=== PATIENT | female | born 1990 | race Caucasian/White ===

== ENCOUNTER → 2017-01-22 | Emergency (ER) | payer MEDICAID ==
[~2017-01-22] VITALS: Ht 152.4 cm; Wt 70.8 kg
[~2017-01-22] MED LIST: CELEXA20 MG PO; DICLEGIS1 TCP PO; FIORICET 325 MG1 TAB PO; FUROSEMIDE 20MG20 MG PO; HYDROCODONE-APA1 TA1 PO; IBU600 MG PO; IBUPROFEN800 MG PO; KEFLEX 500MG.500 MG PO; LORTAB 5/500 501 TAB PO; PRENATAL PLUS1 TA1 PO
--- NOTE | 2017-01-22 15:54 | [facility] Report ---
History of Present Issue Date/Time Seen by Provider 01/22/17 1544 Visit Reason Pt arrived:Walked Presenting Problem:PT C/O OF RED BUMPS ON TOP OF BOTH SHINS X 2 MONTHS. Location if Accident: Onset of symptoms date/time:/ or onset unknown for:MEDICAL HX UNKNOWN Have you (or family members/close friends) recently traveled outside the [place]? N If Yes, where/when: Have you had exposure to infectious disease within the past month? TB? Other? Specify: Patient state that she has noticed small red "knot" like areas on her right lower leg and one on her left leg about two months ago State that over the last weeks she noticed that they have become sore and have a red look on her skin States that she was worried that they may be infected so she came in to get checked ALLERGIES Coded Allergies: No Known Allergies (01/18/16) History Medical History General CAD? No Angina: No HI: No Hypertension? No Hyperlipidemia? No CHF? No DVT? No PE? No COPD? No Asthma? No Anemia? No GERD? No Gastric ulcers? No GI Bleed? No Hernia? No Thyroid Problems? No Hypothyroidism? No CVA? No Seizures? Yes Diabetes? No Renal Insuffiency? No UTI? No Stones? No BPH? No GB Disease: No Nephritic Syndrome? No Asplenia? No Hepatitis? No Sickle Cell Disease? No Arthritis? No Migraines? No Cataracts? No Glaucoma? No MRSA? No HIV? No TB? No Anxiety? Yes Depression? Yes Cancer? No More? No Immunization HX DT/Tetanus 1-4 YRS Flu [id number] Pneumonia [id number] Surgical Hx Previous Surgery?Y C SECTION Social History Smoking Hx Smoker: Never Smoker Tobacco: No Packs/day < 1 Pack Alcohol Alcohol: No Review of Systems All Other Systems Reviewed and Negative Physical Exam Vital Signs Vital Signs Date Time Temp Pulse Resp B/P Pulse O2 O2 Flow FiO2 Ox Delivery Rate 01/22 1523 98.2 81 20 120/58 96 General Appearance normal appearance, WD/WN, no apparent distress Respiratory Status Yes: trachea midline, chest symmetrical, non tender chest. No: respiratory distress. Lung Sounds bilateral: normal breath sounds, lungs clear. Cardiovascular normal exam, regular rate/rhythm, no peripheral edema Extremities seven small red hard areas noted on right lower leg, and one of left leg that have been there about 2 months State that at times they become painful and at times she forgets that they are there, good pulses in leg, good cap refill, no streaking Neurologic alert, normal exam, oriented x 3 Medical Decision Making LABS/Meds/Orders Pt receiving controlled substance in ED? No Results/Orders Laboratory Tests 01/22/17 1615: Sodium 142, Potassium 3.7, Chloride 109 H, Carbon Dioxide 26, BUN 15, Creatinine 0.6, Estimated Creat Clear 162, Estimated GFR (MDRD) 123, Glucose 105 , Calcium 8.7, Total Bilirubin 0.2, AST 13 L, ALT 19, Alkaline Phosphatase 81, Total Protein 7.3, Albumin 3.8, Globulin 3.5 H, Albumin/Globulin Ratio 1.1, PT 10.8, INR 1.00, WBC 9.3, RBC 4.73, Hgb 13.8, Hct 40.0, MCV 84.5, RDW 12.6, Plt Count 201, MPV 9.0, Gran % 59.0, Gran # 5.5, Lymphocytes % 33.6, Monocytes % 5.4 , Eosinophils % 1.5, Basophils % 0.5, Lymphocytes # 3.1, Monocytes # 0.5, Eosinophils # 0.1, Basophils # 0.1, PUBS MCHC 34.3, MCH 29.0 Orders Procedure Date/time Status PROTHROMBIN TIME 01/22 1613 Complete C-REACTIVE PROTEIN 01/22 1613 Complete CBC WITH AUTO DIFF 01/22 1613 Complete CHEM 12 PROFILE 01/22 161 Complete Departure Departure Time of Disposition 1658 Disposition DC Home or Self Care(routine) Clinical Impression Primary Impression: Skin problem Condition STABLE Referrals DIMAS GUTIERREZ, IVAN D: [facility]Call Office Patient Instructions Cephalexin Additional Instructions Follow up with family doctor as discussed in clinic today on Wednesday for further testing and evaluation REturn if needed If you began to have any numbness, swelling, differences in temp, discoloration or any streaking in the legs go straight to the ER Discharge Counseling Counseled pt/family regarding diagnosis, test results, medications/RX, home care, follow up needs Prescriptions Current Visit Scripts CEPHALEXIN (Keflex 500MG Capsule) 500 MG PO BID #20 CAP at 1701
[2017-01-22 16:38] LABS: LYMPH # 3.1 K/mm3 (0.7-4.5); LYMPH % 33.6 % (10-50.0)
[2017-01-22 16:39] LABS: HEMOGLOBIN 13.8 g/dL (12.2-16.2)
[2017-01-22 17:28] VITALS: BP 120/58
== END ==
LOC: UTC 15:07
PROVIDERS: Nurse Practitioner
DX: R21 Rash and other nonspecific skin eruption (principal)